=== PATIENT | female | born 1980 | race Caucasian/White ===

== ENCOUNTER 2016-10-12 04:23 | Emergency (ER) | payer MEDICAID ==
--- NOTE | 2016-10-12 06:48 | ER ---
ADMIT: 10/12/2016 RM/LOC: ER [facility] MR#: [id number] [id number] [place], [place] [address] LAUREN ZHENG [address] [address] Emergency Room Report SEX: F AGE: 36 : 1980 DATE: 10/12/2016 The patient is a 36-year-old, [place]z-speaking [place] immigrant, complaining of awakening with throat tickle, difficulty breathing, and swallowing. History of GERD and asthma. Exam remarkable for anxious, hyperventilating female with bronchospastic cough. Chest is otherwise clear. Responded well to DuoNeb, prednisone, Xanax, and GI cocktail. Discharged with albuterol MDI, and 16-day 40 mg prednisone taper. Follow up with Dr. Pena as needed. Claudy Montana MD/ nereyda JOB #: [id number] CC: Claudy Montana MD, Attending Physician UNKNOWN, Family Physician Christopher Pena MD
== END 2016-10-12 06:10 | disposition home or self-care (01) ==
LOC: ER 04:23
DX: J98.01 Acute bronchospasm (principal); F41.9 Anxiety disorder, unspecified; Z88.0 Allergy status to penicillin; Z88.1 Allergy status to other antibiotic agents; K21.9 Gastro-esophageal reflux disease without esophagitis

== ENCOUNTER 2016-12-10 09:06 | Emergency (ER) | payer MEDICAID ==
--- NOTE | 2016-12-11 23:47 | ER ---
ADMIT: 12/10/2016 RM/LOC: ER [facility] MR#: [id number] [id number] [place], [place] [address] BRANDO VAZQUEZLAUREN MELGAR [address] [place] [id number] Emergency Room Report SEX: F AGE: 36 : 1980 DATE: 12/10/2016 CHIEF COMPLAINT: Sore throat. HISTORY OF PRESENT ILLNESS: This is a 36-year-old, [place]ian-speaking female, who presents with 2 weeks duration of sore throat. The patient states she has had severe sore throat, difficulty swallowing for the past 14 days. States she had some left over clindamycin from a previous visit, has been taking this, but ran out. She was seen by ENT in the past who recommended tonsillectomy, however, she has not done this at this point. Denies any fevers, chills, cough, earache, tooth pain. Does have swollen glands, right greater than left. It is worse with swallowing. Has not tried anything for pain at this point. ALLERGIES: TO PENICILLIN, CIPRO, ASPIRIN, AND INDOMETHACIN. COURSE IN THE EMERGENCY ROOM: The patient was seen and examined. She is afebrile and nontoxic. She is in no acute distress. She does have some cervical lymphadenopathy anteriorly, right greater than left. She does have some pain over palpation of the right lymph nodes. Pharynx is mildly erythematous with some tonsillar swelling, right greater than left. Mild exudates. No drooling. No airway problems. No respiratory distress. Heart is regular rate and rhythm. IMPRESSION: Recurrent tonsillitis. DISPOSITION: The patient will be started on clindamycin 300 mg p.o. t.i.d. x10 days. I did encourage her to use Tylenol and ibuprofen as needed for pain. Increase her fluids as tolerated. Continue to use her salt water rinses as needed for pain. I did encourage her to follow up with Dr. Stahl in the next 2 weeks to re-evaluate for possible tonsillectomy given her history. Questions were sought and answered to the best of my ability and to the patient's satisfaction. Discharged in stable condition. TINA Ocasio / Clemente Saravia MD / nereyda JOB #: [id number] CC: Clemente Saravia MD, Attending Physician Kyaw Stahl MD, Family Physician
== END 2016-12-10 09:35 | disposition home or self-care (01) ==
LOC: ER 09:06
DX: J03.91 Acute recurrent tonsillitis, unspecified (principal); J45.909 Unspecified asthma, uncomplicated; Z88.0 Allergy status to penicillin; Z88.1 Allergy status to other antibiotic agents; Z88.6 Allergy status to analgesic agent; Z90.49 Acquired absence of other specified parts of digestive tract; Z98.890 Other specified postprocedural states; Z79.899 Other long term (current) drug therapy

== ENCOUNTER 2016-12-11 00:11 | Emergency (ER) | payer MEDICAID ==
--- NOTE | 2016-12-14 19:09 | ER ---
ADMIT: 12/11/2016 RM/LOC: ER [facility] MR#: [id number] [address] [place], [place] [address] BRANDO VAZQUEZFLORIN MELGARIN [address] [place] [id number] Emergency Room Report SEX: F AGE: 36 : 1980 DATE: 12/11/2016 HISTORY OF PRESENT ILLNESS: The patient is a 36-year-old female, came to the ER with chief complaint of chest discomfort and sore throat and difficulty swallowing. The patient had been in the ER in the morning and was diagnosed with tonsillitis and was discharged home with clindamycin and states that she has some difficulty swallowing and some nausea and she feels heartburn also and some mid-chest pain, which increases with palpation over the area, also on the right posterior chest she has some pain which increases with movement or palpation over the area. The patient states her main problem is sore throat and difficulty swallowing. PHYSICAL EXAMINATION: GENERAL: The patient is lying in bed, is anxious. VITAL SIGNS: Stable. The patient is afebrile, O2 saturation is 99% on room air, the patient is not tachycardic, and is not tachypneic. HEENT/NECK: She has swollen right oropharyngeal tonsil swelling without an exudate. The patient had no drooling or trismus. The patient had no peritonsillar abscesses. In the neck, there are multiple lymph nodes, which are all tender. The base of the mouth, floor of the mouth is not raised and there is no obvious swelling observed grossly on the face or neck. The patient has no change in the voice and no drooling. LUNGS: Clear bilaterally. HEART: Normal heart sounds, S1-S2. CHEST: There is some chest wall tenderness in the anterior mid-right chest and also in the posterior right chest. ABDOMEN: Soft. EXTREMITIES: Nontender, and no swelling. The rest of the physical exam is noncontributory. The patient is not on hormone contraceptives. EMERGENCY ROOM COURSE: Chest x-ray did not show any acute changes. The patient is on monitoring. The patient received IV fluid 1 L NS. The patient also received Decadron 10 mg IM for swelling of the tonsils and difficulty swallowing. The patient also received a small dose of morphine and also received GI cocktail to gargle and swallow to decrease the pain and discomfort of the pharyngitis, tonsillitis. The patient received Ativan 1 mg IV for controlling anxiety. The patient was reassessed and she improved. Chest x- ray did not show any acute changes, and lateral neck did not show also any acute changes. The patient can be discharged to home with return precautions, and follow up with the primary care doctor as needed. Hawk Wallace MD/ nereyda JOB #: [id number] CC: Hawk Wallace MD, Attending Physician
== END 2016-12-11 01:45 | disposition home or self-care (01) ==
LOC: ER 00:11
DX: J03.90 Acute tonsillitis, unspecified (principal); R07.89 Other chest pain; J45.909 Unspecified asthma, uncomplicated; Z90.49 Acquired absence of other specified parts of digestive tract; Z98.890 Other specified postprocedural states; Z88.0 Allergy status to penicillin; Z88.1 Allergy status to other antibiotic agents; Z88.6 Allergy status to analgesic agent; Z79.899 Other long term (current) drug therapy